=== PATIENT | female | born 1960 | race African-American/Black ===

== ENCOUNTER → 2019-06-18 | Day surgery (SDC) | payer OTHER | LOC: FASU 06:11 ==

== ENCOUNTER 2019-12-08 06:07 | Day surgery (SDC) | payer OTHER ==
[2019-11-26 10:36] VITALS: BMI 26.6
[2019-12-08] MEDS ORDERED: MIDAZOLAM HCL 2 MG/2 ML SINGLE DOSE VIAL ONE (07:41)
[2019-12-08] MEDS ORDERED: PROPOFOL 20 ML ONE (07:41)
[2019-12-08] MEDS ORDERED: LIDOCAINE HCL/PF 2% SDV 5ML VIAL ONE (07:42)
[2019-12-08] MEDS ORDERED: LIDOCAINE HCL 2% (20ML MULTI-DOSE VIAL) ONE (07:47)
[2019-12-08] MEDS ORDERED: LIDOCAINE HCL 2% (50ML VIAL) INF ONE (08:00)
[2019-12-08] MEDS ORDERED: KETOROLAC TROMETHAMINE 30 MG/1 ML VIAL ONE (08:07)
[2019-12-08 08:49] VITALS: BP 112/74; PULSE 78; TEMP 98
--- NOTE | 2019-12-08 09:45 | OP ---
DATE OF OPERATION: 12/08/2019 PREOPERATIVE DIAGNOSIS: Right thumb trigger finger. POSTOPERATIVE DIAGNOSIS: Right thumb trigger finger. OPERATIVE PROCEDURE: Right thumb trigger finger release. SURGEON: Camron Jamil MD ANESTHESIA: Local with sedation. COMPLICATIONS: None. ESTIMATED BLOOD LOSS: Minimal. INDICATION FOR PROCEDURE: The patient is a female with the above finding indicated for operative treatment. Risks, benefits, alternatives were discussed with patient at length. Proper informed consent was obtained. PROCEDURE: After proper identification of patient and correct operative site patient brought to the operating room and placed supine on the table, all bony prominences well padded. Sedation was given via the anesthesiologist. Local anesthesia was given with 2% lidocaine. Right upper extremity was prepped and draped in the usual sterile fashion. Well-padded tourniquet was placed over the sterile prep. Esmarch bandage used to exsanguinate right upper extremity. Tourniquet was inflated to 250 mmHg. Transverse incision made over the A1 hanny. Incision was taken sharply through the skin, with blunt dissection through subcutaneous tissues. A1 hanny was identified. Neurovascular structures were carefully protected. A1 hanny was divided. Patient was then asked to flex and extend her thumb and no further triggering was noted. Wound was irrigated with saline and repaired with 5-0 fast-absorbing plain gut suture. She tolerated procedure well. She was brought to recovery in stable condition. CAMRON JAMIL M.D. [id number]
== END 2019-12-08 08:51 | disposition home or self-care (01) ==
LOC: FASU 06:07
PROVIDERS: ATTEND Orthopaedic Surgery Hand Surgery
PROC: 0LN70ZZ Release Right Hand Tendon, Open Approach (ICD-10-PCS; principal; 2019-12-08 08:00)
DX: M65.311 Trigger thumb, right thumb (principal)
CPT/HCPCS: 82962